=== PATIENT | male | born 1965 | race African-American/Black ===

== ENCOUNTER 2017-05-18 22:02 | Inpatient (IN) ==
[2017-05-18] MEDS ORDERED: KETOROLAC 30 MG/1 ML VIAL IV STA (23:25)
[2017-05-18] MEDS ORDERED: ONDANSETRON 4 MG/2 ML VIAL IV STA (23:25)
[2017-05-18] MEDS ORDERED: PANTOPRAZOLE 40 MG VIAL IV STA (23:25)
[2017-05-19] MEDS ORDERED: ONDANSETRON 4 MG/2 ML VIAL ONE ×2 (00:27→03:35)
[2017-05-19] MEDS ORDERED: KETOROLAC 30 MG/1 ML VIAL ONE (00:27)
[2017-05-19] MEDS ORDERED: PANTOPRAZOLE 40 MG VIAL IV ONE (00:27)
[2017-05-19 00:49] LABS: Basophils % 0.2 % (0.0-0.8); Hematocrit 43.1 VOL% (42.0-52.0); Hemoglobin 14.9 GM/DL (14.0-18.0); Immature Granulocytes % 0.4 %; Immature Granulocytes Absolute 0.06 #; Lymphocytes # 0.9 10*3/uL (1.4-4.0); Lymphocytes % 5.4 % (21.2-54.2); Mean Corpuscular HGB Conc 34.6 GM/DL (32-36); Mean Corpuscular Hemoglobin 33 PG (27-34); Mean Corpuscular Volume 93.9 FL (87-102); Mean Platelet Volume 9.5 FL (9.6-12.0); Monocytes # 0.5 10*3/uL (0.11-0.8); Neutrophils # 14.9 10*3/uL (1.4-7.4); Platelet Count 305 T/CUMM (130-400); Red Blood Count 4.59 MC/CUMM (3.8-5.5); Red Cell Distribution Width 12.1 % (9.3-17.3); White Blood Count 16.4 T/CUMM (4-12)
[2017-05-19 01:15] LABS: Alanine Aminotransferase 18 U/L (16-61); Albumin 3.6 G/DL (3.4-5.0); Alkaline Phosphatase 74 U/L (45-117); Aspartate Amino Transferase 11 U/L (0-37); Blood Urea Nitrogen 9 MG/DL (7-18); Glucose 148 MG/DL (74-106); Osmolality,Calculated 287.8 MOS/KG (273-304); Potassium 3.6 MMOL/L (3.5-5.1); Sodium 144 MMOL/L (136-145); Total Protein 6.7 G/DL (6.4-8.3); Troponin I Only < 0.015 NG/ML (0.00-0.045)
[2017-05-19 01:45] LABS: Band Neutrophils 5 % (0-10); Lymphocytes 3 % (20-55); Segmented Neutrophils 90 % (50-85); Total Cells Counted 100
[2017-05-19] MEDS ORDERED: MORPHINE 2 MG/1 ML SYRINGE IV PRN (02:56)
[2017-05-19] MEDS ORDERED: ONDANSETRON 4 MG/2 ML VIAL IV PRN (02:56)
[2017-05-19] MEDS ORDERED: MORPHINE 2 MG/1 ML SYRINGE IV STA (03:00)
[2017-05-19] MEDS ORDERED: ONDANSETRON 4 MG/2 ML VIAL IV STA ×2 (03:35→05:00)
[2017-05-19] MEDS ORDERED: MORPHINE 10 MG/1 ML VIAL ONE (03:36)
[2017-05-19] MEDS: DEXTROSE 5% LACTATED RINGERS 1,000 ML IV SCH ×3 (04:21→21:07)
[2017-05-19 08:02] LABS: Basophils % 0.2 % (0.0-0.8); Eosinophils # 0.1 10*3/uL (0.0-0.87); Hematocrit 37.8 VOL% (42.0-52.0); Hemoglobin 13.2 GM/DL (14.0-18.0); Immature Granulocytes % 0.4 %; Immature Granulocytes Absolute 0.05 #; Lymphocytes # 2.9 10*3/uL (1.4-4.0); Lymphocytes % 21.9 % (21.2-54.2); Mean Corpuscular HGB Conc 34.9 GM/DL (32-36); Mean Corpuscular Hemoglobin 33 PG (27-34); Mean Corpuscular Volume 94.5 FL (87-102); Mean Platelet Volume 9.7 FL (9.6-12.0); Monocytes % 7.2 % (1.7-12.7); Neutrophils # 9.1 10*3/uL (1.4-7.4); Neutrophils % 69.3 % (38.7-73.9); Platelet Count 281 T/CUMM (130-400); Red Cell Distribution Width 12.4 % (9.3-17.3); White Blood Count 13.2 T/CUMM (4-12)
[2017-05-19 08:30] LABS: Bilirubin,Total 0.8 MG/DL (0.2-1.0); Calcium 8.4 MG/DL (8.5-10.1); Potassium 3.7 MMOL/L (3.5-5.1); Total Protein 5.2 G/DL (6.4-8.3)
[2017-05-19] MEDS: PANTOPRAZOLE 40 MG TABLET PO SCH (09:50)
[2017-05-19] MEDS: KETOROLAC 30 MG/1 ML VIAL IV PRN ×2 (09:50→17:33)
[2017-05-20] MEDS: KETOROLAC 30 MG/1 ML VIAL IV PRN ×2 (02:00→08:42)
[2017-05-20] MEDS: DEXTROSE 5% LACTATED RINGERS 1,000 ML IV SCH ×3 (04:17→21:27)
[2017-05-20 05:35] LABS: Basophils % 0.3 % (0.0-0.8); Eosinophils # 0.2 10*3/uL (0.0-0.87); Eosinophils % 2.8 % (0.00-10.9); Hematocrit 36.6 VOL% (42.0-52.0); Hemoglobin 12.7 GM/DL (14.0-18.0); Immature Granulocytes % 0.3 %; Immature Granulocytes Absolute 0.02 #; Lymphocytes # 2.8 10*3/uL (1.4-4.0); Mean Corpuscular HGB Conc 34.7 GM/DL (32-36); Mean Corpuscular Hemoglobin 33 PG (27-34); Mean Corpuscular Volume 94.6 FL (87-102); Mean Platelet Volume 9.8 FL (9.6-12.0); Monocytes # 0.5 10*3/uL (0.11-0.8); Monocytes % 7.2 % (1.7-12.7); Neutrophils % 46.4 % (38.7-73.9); Platelet Count 256 T/CUMM (130-400); Red Blood Count 3.87 MC/CUMM (3.8-5.5); Red Cell Distribution Width 12.7 % (9.3-17.3); White Blood Count 6.5 T/CUMM (4-12)
[2017-05-20] MEDS: PANTOPRAZOLE 40 MG TABLET PO SCH (10:54)
[2017-05-20 15:51] LABS: Apearance,Urine CLEAR (Clear); Bilirubin,Urine Negative (Negative); Blood, Urine Negative (Negative); Glucose,Urine (UA) Negative (Negative); Ketones,Urine Negative (Negative); Nitrite,Urine Negative (Negative); Protein,Urine Negative; RBC,Urine 1 /HPF (0-4); Urine Color Yellow (Yellow); WBC,Urine <1 /HPF (0-6)
[2017-05-20] MEDS: MORPHINE 10 MG/1 ML VIAL IV PRN ×2 (18:45→23:37)
[2017-05-21] MEDS: ENOXAPARIN 40 MG/0.4 ML SYRINGE SUBCUT SCH ×2 (02:34→21:05)
[2017-05-21] MEDS: DEXTROSE 5% LACTATED RINGERS 1,000 ML IV SCH ×3 (05:05→23:59)
[2017-05-21] MEDS: MORPHINE 10 MG/1 ML VIAL IV PRN ×3 (05:19→21:03)
[2017-05-21 06:09] LABS: Basophils % 0.4 % (0.0-0.8); Eosinophils # 0.2 10*3/uL (0.0-0.87); Eosinophils % 2.6 % (0.00-10.9); Hemoglobin 12.3 GM/DL (14.0-18.0); Immature Granulocytes % 0.4 %; Immature Granulocytes Absolute 0.03 #; Lymphocytes # 2.6 10*3/uL (1.4-4.0); Lymphocytes % 31.7 % (21.2-54.2); Mean Corpuscular HGB Conc 34.2 GM/DL (32-36); Mean Corpuscular Hemoglobin 32 PG (27-34); Mean Corpuscular Volume 93.8 FL (87-102); Mean Platelet Volume 9.8 FL (9.6-12.0); Monocytes # 0.6 10*3/uL (0.11-0.8); Monocytes % 6.8 % (1.7-12.7); Neutrophils # 4.8 10*3/uL (1.4-7.4); Neutrophils % 58.1 % (38.7-73.9); Platelet Count 265 T/CUMM (130-400); Red Blood Count 3.84 MC/CUMM (3.8-5.5); Red Cell Distribution Width 12.2 % (9.3-17.3); White Blood Count 8.2 T/CUMM (4-12)
[2017-05-21 06:46] LABS: Albumin 2.5 G/DL (3.4-5.0); Bilirubin,Total 1.1 MG/DL (0.2-1.0); Calcium 7.8 MG/DL (8.5-10.1); Osmolality,Calculated 289.6 MOS/KG (273-304); Potassium 3.8 MMOL/L (3.5-5.1); Total Protein 4.8 G/DL (6.4-8.3)
[2017-05-21] MEDS ORDERED: cefOXitin 2,000 MG in SYRINGE 1 EACH IV ONE (07:55)
[2017-05-21] MEDS ORDERED: PIPERACILLIN/TAZOBACTAM 3,375 MG in SODIUM CHLORIDE 0.9% 100 ML IV SCH (08:30)
[2017-05-21] MEDS ORDERED: DIAZEPAM 5 MG TABLET PO ONE (09:04)
[2017-05-21] MEDS ORDERED: PANTOPRAZOLE 40 MG TABLET PO ONE (09:04)
[2017-05-21] MEDS: PANTOPRAZOLE 40 MG TABLET PO SCH (09:09)
[2017-05-21] MEDS ORDERED: LACTATED RINGERS 1,000 ML IV SCH (09:30)
[2017-05-21] MEDS ORDERED: TISSUE ADHESIVE 1 EACH APPLICATOR TOP ONE (11:49)
[2017-05-21] MEDS ORDERED: BUPIVACAINE 0.25% 50 ML VIAL ONE (11:49)
[2017-05-21] MEDS ORDERED: ACETAMINOPHEN 1,000 MG/100 ML VIAL IV ONE (13:56)
[2017-05-21] MEDS ORDERED: METOPROLOL TARTRATE 5 MG/5 ML VIAL IV ONE (14:04)
[2017-05-21] MEDS ORDERED: SEVOFLURANE 1 UNIT/15 MINUTE INH ONE (14:39)
[2017-05-21] MEDS ORDERED: PROPOFOL 200 MG/20 ML VIAL IV ONE (14:39)
[2017-05-21] MEDS ORDERED: MIDAZOLAM 2 MG/2 ML VIAL ONE (14:39)
[2017-05-21] MEDS ORDERED: fentaNYL 100 MCG/2 ML VIAL ONE (14:39)
[2017-05-21] MEDS ORDERED: GLYCOPYRROLATE 0.4 MG/2 ML VIAL ONE (14:40)
[2017-05-21] MEDS ORDERED: ROCURONIUM 100 MG/10 ML VIAL IV ONE (14:40)
[2017-05-21] MEDS ORDERED: NEOSTIGMINE 10 MG/10 ML VIAL ONE (14:40)
[2017-05-21] MEDS ORDERED: KETOROLAC 30 MG/1 ML VIAL ONE (14:40)
[2017-05-21] MEDS ORDERED: ONDANSETRON 4 MG/2 ML VIAL ONE (14:40)
[2017-05-22] MEDS: MORPHINE 10 MG/1 ML VIAL IV PRN ×2 (01:15→06:16)
[2017-05-22] MEDS: DEXTROSE 5% LACTATED RINGERS 1,000 ML IV SCH ×3 (02:52→20:23)
[2017-05-22] MEDS: KETOROLAC 30 MG/1 ML VIAL IV PRN (05:08)
[2017-05-22 07:48] LABS: Basophils % 0.1 % (0.0-0.8); Eosinophils # 0.1 10*3/uL (0.0-0.87); Eosinophils % 0.5 % (0.00-10.9); Hematocrit 35.6 VOL% (42.0-52.0); Hemoglobin 12.2 GM/DL (14.0-18.0); Immature Granulocytes % 0.4 %; Immature Granulocytes Absolute 0.04 #; Lymphocytes # 1.3 10*3/uL (1.4-4.0); Lymphocytes % 13.3 % (21.2-54.2); Mean Corpuscular HGB Conc 34.3 GM/DL (32-36); Mean Corpuscular Hemoglobin 32 PG (27-34); Mean Corpuscular Volume 94.7 FL (87-102); Mean Platelet Volume 9.6 FL (9.6-12.0); Monocytes # 0.7 10*3/uL (0.11-0.8); Monocytes % 7.3 % (1.7-12.7); Neutrophils # 7.7 10*3/uL (1.4-7.4); Neutrophils % 78.4 % (38.7-73.9); Platelet Count 257 T/CUMM (130-400); Red Blood Count 3.76 MC/CUMM (3.8-5.5); Red Cell Distribution Width 12.3 % (9.3-17.3); White Blood Count 9.8 T/CUMM (4-12)
[2017-05-22] MEDS ORDERED: PIPERACILLIN/TAZOBACTAM 3,375 MG in SODIUM CHLORIDE 0.9% 100 ML IV SCH (08:00)
[2017-05-22 08:32] LABS: Bilirubin,Direct 0.37 MG/DL (0.0-0.20); Bilirubin,Total 1.2 MG/DL (0.2-1.0); Calcium 8.1 MG/DL (8.5-10.1); Potassium 3.8 MMOL/L (3.5-5.1); Total Protein 5.9 G/DL (6.4-8.3)
[2017-05-22] MEDS: PANTOPRAZOLE 40 MG TABLET PO SCH (08:40)
[2017-05-22] MEDS: KETOROLAC 30 MG/1 ML VIAL IV SCH ×3 (08:41→19:24)
[2017-05-22] MEDS: LEVOFLOXACIN INJ 750 MG in PREMIX 1 EACH IV SCH (08:42)
[2017-05-22] MEDS: metroNIDAZOLE INJ 500 MG in PREMIX 1 EACH IV SCH ×2 (10:20→16:13)
[2017-05-22] MEDS: HYDROmorphone 2 MG/1 ML VIAL IV PRN ×4 (10:20→23:11)
[2017-05-22] MEDS: ENOXAPARIN 40 MG/0.4 ML SYRINGE SUBCUT SCH (20:24)
[2017-05-23] MEDS: metroNIDAZOLE INJ 500 MG in PREMIX 1 EACH IV SCH ×3 (00:20→16:32)
[2017-05-23] MEDS: HYDROmorphone 2 MG/1 ML VIAL IV PRN (01:20)
[2017-05-23] MEDS: KETOROLAC 30 MG/1 ML VIAL IV SCH ×4 (01:20→19:39)
[2017-05-23] MEDS: SIMETHICONE CHEW 80 MG TABLET PO PRN ×3 (01:42→20:55)
[2017-05-23] MEDS: MORPHINE 10 MG/1 ML VIAL IV PRN ×7 (03:09→22:39)
[2017-05-23 04:10] LABS: Basophils % 0.1 % (0.0-0.8); Eosinophils % 0.1 % (0.00-10.9); Hematocrit 25.3 VOL% (42.0-52.0); Hemoglobin 8.7 GM/DL (14.0-18.0); Immature Granulocytes % 0.3 %; Immature Granulocytes Absolute 0.04 #; Lymphocytes # 0.9 10*3/uL (1.4-4.0); Lymphocytes % 7.1 % (21.2-54.2); Mean Corpuscular HGB Conc 34.4 GM/DL (32-36); Mean Corpuscular Hemoglobin 33 PG (27-34); Mean Corpuscular Volume 95.1 FL (87-102); Neutrophils # 10.5 10*3/uL (1.4-7.4); Neutrophils % 84.4 % (38.7-73.9); Platelet Count 239 T/CUMM (130-400); Red Blood Count 2.66 MC/CUMM (3.8-5.5); Red Cell Distribution Width 11.9 % (9.3-17.3); White Blood Count 12.5 T/CUMM (4-12)
[2017-05-23 04:56] LABS: Bilirubin,Direct 0.33 MG/DL (0.0-0.20); Bilirubin,Total 1.8 MG/DL (0.2-1.0); Calcium 7.9 MG/DL (8.5-10.1); Osmolality,Calculated 273.7 MOS/KG (273-304); Potassium 3.5 MMOL/L (3.5-5.1); Total Protein 5.5 G/DL (6.4-8.3)
[2017-05-23] MEDS: DEXTROSE 5% LACTATED RINGERS 1,000 ML IV SCH ×2 (06:08→11:01)
[2017-05-23] MEDS: PANTOPRAZOLE 40 MG TABLET PO SCH (08:27)
[2017-05-23] MEDS ORDERED: BISACODYL 5 MG TABLET PO PRN (10:37)
[2017-05-23] MEDS: LEVOFLOXACIN INJ 750 MG in PREMIX 1 EACH IV SCH (10:56)
[2017-05-23 11:36] LABS: Basophils % 0.2 % (0.0-0.8); Eosinophils % 0.2 % (0.00-10.9); Hematocrit 23.2 VOL% (42.0-52.0); Immature Granulocytes % 0.3 %; Immature Granulocytes Absolute 0.04 #; Lymphocytes # 1.9 10*3/uL (1.4-4.0); Lymphocytes % 14.6 % (21.2-54.2); Mean Corpuscular HGB Conc 34.5 GM/DL (32-36); Mean Corpuscular Hemoglobin 33 PG (27-34); Mean Corpuscular Volume 94.3 FL (87-102); Mean Platelet Volume 9.6 FL (9.6-12.0); Monocytes # 1.2 10*3/uL (0.11-0.8); Monocytes % 9.7 % (1.7-12.7); Neutrophils # 9.6 10*3/uL (1.4-7.4); Platelet Count 232 T/CUMM (130-400); Red Blood Count 2.46 MC/CUMM (3.8-5.5); Red Cell Distribution Width 11.9 % (9.3-17.3); White Blood Count 12.8 T/CUMM (4-12)
[2017-05-23] MEDS ORDERED: BISACODYL 10 MG SUPP RECTAL PRN (13:04)
[2017-05-23] MEDS: ENOXAPARIN 40 MG/0.4 ML SYRINGE SUBCUT SCH (20:11)
[2017-05-24] MEDS: metroNIDAZOLE INJ 500 MG in PREMIX 1 EACH IV SCH ×3 (00:17→16:58)
[2017-05-24] MEDS: KETOROLAC 30 MG/1 ML VIAL IV SCH ×4 (01:35→19:50)
[2017-05-24] MEDS: MORPHINE 10 MG/1 ML VIAL IV PRN ×4 (01:35→22:41)
[2017-05-24] MEDS: DEXTROSE 5% LACTATED RINGERS 1,000 ML IV SCH ×3 (01:38→11:56)
[2017-05-24 08:55] LABS: Basophils % 0.1 % (0.0-0.8); Eosinophils # 0.2 10*3/uL (0.0-0.87); Immature Granulocytes % 0.4 %; Immature Granulocytes Absolute 0.03 #; Lymphocytes # 1.4 10*3/uL (1.4-4.0); Lymphocytes % 16.8 % (21.2-54.2); Mean Corpuscular Hemoglobin 33 PG (27-34); Mean Corpuscular Volume 94.2 FL (87-102); Mean Platelet Volume 9.1 FL (9.6-12.0); Monocytes # 1.1 10*3/uL (0.11-0.8); Monocytes % 12.6 % (1.7-12.7); Neutrophils # 5.8 10*3/uL (1.4-7.4); Neutrophils % 68.1 % (38.7-73.9); Platelet Count 189 T/CUMM (130-400); Red Blood Count 1.91 MC/CUMM (3.8-5.5); Red Cell Distribution Width 12.4 % (9.3-17.3); White Blood Count 8.5 T/CUMM (4-12)
[2017-05-24] MEDS: PANTOPRAZOLE 40 MG TABLET PO SCH (09:13)
[2017-05-24 09:36] LABS: Hemoglobin 6.3 GM/DL (14.0-18.0)
[2017-05-24] MEDS ORDERED: SODIUM CHLORIDE 0.9% 1,000 ML IV PRN (09:49)
[2017-05-24] MEDS: LEVOFLOXACIN INJ 750 MG in PREMIX 1 EACH IV SCH (10:28)
[2017-05-24] MEDS ORDERED: ceFAZolin 1,000 MG VIAL ONE (11:57)
[2017-05-24] MEDS ORDERED: BUPIVACAINE 0.25% 50 ML VIAL ONE (12:39)
[2017-05-24] MEDS ORDERED: BUPIVACAINE LIPOSOMAL 20 ML/266 MG VIAL ONE (12:40)
[2017-05-24] MEDS: HYDROmorphone 2 MG/1 ML VIAL IV PRN ×4 (12:57→13:15)
[2017-05-24] MEDS ORDERED: HYDROmorphone 2 MG/1 ML VIAL ONE ×2 (12:59→13:10)
[2017-05-24] MEDS ORDERED: PROPOFOL 200 MG/20 ML VIAL IV ONE (13:09)
[2017-05-24] MEDS ORDERED: SEVOFLURANE 1 UNIT/15 MINUTE INH ONE (13:09)
[2017-05-24] MEDS ORDERED: fentaNYL 100 MCG/2 ML VIAL ONE (13:10)
[2017-05-24] MEDS ORDERED: SUCCINYLCHOLINE 200 MG/10 ML VIAL ONE (13:10)
[2017-05-24] MEDS ORDERED: ACETAMINOPHEN 1,000 MG/100 ML VIAL IV ONE (13:10)
[2017-05-24] MEDS ORDERED: DEXAMETHASONE 10 MG/1 ML VIAL ONE (13:10)
[2017-05-24] MEDS ORDERED: ROCURONIUM 100 MG/10 ML VIAL IV ONE (13:10)
[2017-05-24] MEDS ORDERED: NEOSTIGMINE 10 MG/10 ML VIAL ONE (13:10)
[2017-05-24] MEDS ORDERED: ONDANSETRON 4 MG/2 ML VIAL ONE (13:10)
[2017-05-24] MEDS ORDERED: GLYCOPYRROLATE 0.4 MG/2 ML VIAL ONE (13:10)
[2017-05-24] MEDS ORDERED: SODIUM CHLORIDE 0.9% 1,000 ML IV ONE (13:10)
[2017-05-24 13:11] LABS: Apearance,Urine CLEAR (Clear); Bacteria,Urine Occasional /HPF (Few); Bilirubin,Urine Negative (Negative); Blood, Urine Small mg/dL (Negative); Glucose,Urine (UA) Negative (Negative); Ketones,Urine Negative (Negative); Mucus,Urine Occasional /LPF (Occasional); Nitrite,Urine Negative (Negative); Protein,Urine Negative; Squamous Epithelial Cell,Urine Occasional /HPF (0-10); Urine Color Yellow (Yellow); Urine Specific Gravity 1.004 (1.001-1.035); Urine Urobilinogen < 2.0 EU/DL (0.2-1.0); WBC,Urine <1 /HPF (0-6)
[2017-05-24] MEDS ORDERED: ONDANSETRON 4 MG/2 ML VIAL IV PRN (13:17)
[2017-05-24] MEDS ORDERED: SODIUM CHLORIDE 0.9% 1,000 ML IV SCH (13:30)
[2017-05-24 13:42] LABS: Basophils % 0.1 % (0.0-0.8); Eosinophils # 0.1 10*3/uL (0.0-0.87); Eosinophils % 0.9 % (0.00-10.9); Hematocrit 25.4 VOL% (42.0-52.0); Hemoglobin 8.8 GM/DL (14.0-18.0); Immature Granulocytes % 0.5 %; Immature Granulocytes Absolute 0.05 #; Lymphocytes # 0.9 10*3/uL (1.4-4.0); Lymphocytes % 8.8 % (21.2-54.2); Mean Corpuscular HGB Conc 34.6 GM/DL (32-36); Mean Corpuscular Hemoglobin 33 PG (27-34); Mean Corpuscular Volume 93.7 FL (87-102); Mean Platelet Volume 9.1 FL (9.6-12.0); Monocytes # 0.5 10*3/uL (0.11-0.8); Monocytes % 4.4 % (1.7-12.7); Neutrophils % 85.3 % (38.7-73.9); Platelet Count 198 T/CUMM (130-400); Red Blood Count 2.71 MC/CUMM (3.8-5.5); Red Cell Distribution Width 13.4 % (9.3-17.3); White Blood Count 10.5 T/CUMM (4-12)
[2017-05-24] MEDS: ENOXAPARIN 40 MG/0.4 ML SYRINGE SUBCUT SCH (20:34)
[2017-05-25] MEDS: DEXTROSE 5% LACTATED RINGERS 1,000 ML IV SCH ×3 (00:41→21:46)
[2017-05-25] MEDS: metroNIDAZOLE INJ 500 MG in PREMIX 1 EACH IV SCH ×4 (00:42→23:58)
[2017-05-25] MEDS: KETOROLAC 30 MG/1 ML VIAL IV SCH ×4 (02:40→20:30)
[2017-05-25] MEDS: MORPHINE 10 MG/1 ML VIAL IV PRN ×2 (02:40→05:53)
[2017-05-25 05:25] LABS: Basophils % 0.1 % (0.0-0.8); Hematocrit 21.7 VOL% (42.0-52.0); Hemoglobin 7.6 GM/DL (14.0-18.0); Immature Granulocytes % 0.5 %; Immature Granulocytes Absolute 0.05 #; Lymphocytes # 1.1 10*3/uL (1.4-4.0); Lymphocytes % 12.4 % (21.2-54.2); Mean Corpuscular Hemoglobin 32 PG (27-34); Mean Corpuscular Volume 91.6 FL (87-102); Mean Platelet Volume 9.7 FL (9.6-12.0); Monocytes # 0.9 10*3/uL (0.11-0.8); Monocytes % 9.6 % (1.7-12.7); Neutrophils % 77.4 % (38.7-73.9); Platelet Count 208 T/CUMM (130-400); Red Blood Count 2.37 MC/CUMM (3.8-5.5); Red Cell Distribution Width 14.1 % (9.3-17.3); White Blood Count 9.1 T/CUMM (4-12)
[2017-05-25] MEDS ORDERED: NALOXONE 0.4 MG/ML VIAL IV PRN (07:25)
[2017-05-25] MEDS: PANTOPRAZOLE 40 MG TABLET PO SCH (08:50)
[2017-05-25] MEDS: HYDROmorphone PCA 30 MG/30 ML SYRINGE IV SCH (09:30)
[2017-05-25] MEDS: LEVOFLOXACIN INJ 750 MG in PREMIX 1 EACH IV SCH (10:04)
[2017-05-25 11:53] LABS: Hematocrit 22.5 VOL% (42.0-52.0)
[2017-05-25] MEDS: ENOXAPARIN 40 MG/0.4 ML SYRINGE SUBCUT SCH (20:33)
[2017-05-26] MEDS: KETOROLAC 30 MG/1 ML VIAL IV SCH ×4 (02:21→20:02)
[2017-05-26] MEDS: DEXTROSE 5% LACTATED RINGERS 1,000 ML IV SCH ×2 (02:32→06:17)
[2017-05-26 05:51] LABS: Basophils % 0.2 % (0.0-0.8); Eosinophils # 0.2 10*3/uL (0.0-0.87); Hematocrit 22.3 VOL% (42.0-52.0); Hemoglobin 7.6 GM/DL (14.0-18.0); Immature Granulocytes % 0.7 %; Immature Granulocytes Absolute 0.07 #; Lymphocytes % 30.6 % (21.2-54.2); Mean Corpuscular HGB Conc 34.1 GM/DL (32-36); Mean Corpuscular Hemoglobin 32 PG (27-34); Mean Corpuscular Volume 94.9 FL (87-102); Mean Platelet Volume 9.2 FL (9.6-12.0); Monocytes # 1.1 10*3/uL (0.11-0.8); Monocytes % 10.8 % (1.7-12.7); Neutrophils # 5.5 10*3/uL (1.4-7.4); Neutrophils % 55.7 % (38.7-73.9); Platelet Count 241 T/CUMM (130-400); Red Blood Count 2.35 MC/CUMM (3.8-5.5); Red Cell Distribution Width 13.6 % (9.3-17.3); White Blood Count 9.8 T/CUMM (4-12)
[2017-05-26 06:13] LABS: Potassium 3.5 MMOL/L (3.5-5.1)
[2017-05-26] MEDS: metroNIDAZOLE INJ 500 MG in PREMIX 1 EACH IV SCH (09:00)
[2017-05-26] MEDS: PANTOPRAZOLE 40 MG TABLET PO SCH (09:01)
[2017-05-26] MEDS ORDERED: FUROSEMIDE 40 MG/4 ML VIAL IV ONE (09:22)
[2017-05-26] MEDS ORDERED: HYDROmorphone 2 MG/1 ML VIAL IV PRN (09:22)
[2017-05-26] MEDS: LEVOFLOXACIN INJ 750 MG in PREMIX 1 EACH IV SCH (09:25)
[2017-05-26] MEDS: ENOXAPARIN 40 MG/0.4 ML SYRINGE SUBCUT SCH (21:59)
[2017-05-27] MEDS: HYDROmorphone PCA 30 MG/30 ML SYRINGE IV SCH (01:43)
[2017-05-27] MEDS: KETOROLAC 30 MG/1 ML VIAL IV SCH (02:28)
[2017-05-27 04:53] LABS: Basophils % 0.3 % (0.0-0.8); Eosinophils # 0.3 10*3/uL (0.0-0.87); Eosinophils % 3.3 % (0.00-10.9); Hematocrit 23.4 VOL% (42.0-52.0); Hemoglobin 8.1 GM/DL (14.0-18.0); Immature Granulocytes % 0.5 %; Immature Granulocytes Absolute 0.05 #; Lymphocytes # 2.5 10*3/uL (1.4-4.0); Lymphocytes % 26.4 % (21.2-54.2); Mean Corpuscular HGB Conc 34.6 GM/DL (32-36); Mean Corpuscular Hemoglobin 33 PG (27-34); Mean Corpuscular Volume 94.7 FL (87-102); Mean Platelet Volume 8.7 FL (9.6-12.0); Monocytes % 10.2 % (1.7-12.7); Neutrophils # 5.6 10*3/uL (1.4-7.4); Neutrophils % 59.3 % (38.7-73.9); Platelet Count 268 T/CUMM (130-400); Red Blood Count 2.47 MC/CUMM (3.8-5.5); Red Cell Distribution Width 13.5 % (9.3-17.3); White Blood Count 9.4 T/CUMM (4-12)
[2017-05-27] MEDS: LISINOPRIL 10 MG TABLET PO SCH (08:14)
[2017-05-27] MEDS: PANTOPRAZOLE 40 MG TABLET PO SCH (08:14)
[2017-05-27] MEDS: POLYETHYLENE GLYCOL POWDER 17 GM PACK PO SCH (09:59)
[2017-05-27] MEDS: ENOXAPARIN 40 MG/0.4 ML SYRINGE SUBCUT SCH (21:44)
[2017-05-28 06:09] LABS: Basophils % 0.2 % (0.0-0.8); Eosinophils # 0.3 10*3/uL (0.0-0.87); Eosinophils % 3.2 % (0.00-10.9); Hematocrit 25.9 VOL% (42.0-52.0); Hemoglobin 8.9 GM/DL (14.0-18.0); Immature Granulocytes % 0.7 %; Immature Granulocytes Absolute 0.07 #; Lymphocytes # 2.9 10*3/uL (1.4-4.0); Lymphocytes % 28.6 % (21.2-54.2); Mean Corpuscular HGB Conc 34.4 GM/DL (32-36); Mean Corpuscular Hemoglobin 32 PG (27-34); Mean Corpuscular Volume 93.8 FL (87-102); Monocytes # 1.2 10*3/uL (0.11-0.8); Monocytes % 11.4 % (1.7-12.7); NRBC # 0.02 10*3/uL; Neutrophils # 5.6 10*3/uL (1.4-7.4); Neutrophils % 55.9 % (38.7-73.9); Platelet Count 325 T/CUMM (130-400); Red Blood Count 2.76 MC/CUMM (3.8-5.5); Red Cell Distribution Width 14.2 % (9.3-17.3); White Blood Count 10.1 T/CUMM (4-12)
[2017-05-28 06:46] LABS: Calcium 7.9 MG/DL (8.5-10.1); Potassium 3.9 MMOL/L (3.5-5.1)
[2017-05-28] MEDS: LISINOPRIL 10 MG TABLET PO SCH (08:32)
[2017-05-28] MEDS: PANTOPRAZOLE 40 MG TABLET PO SCH (08:32)
[2017-05-28] MEDS: POLYETHYLENE GLYCOL POWDER 17 GM PACK PO SCH (08:32)
[2017-05-28] MEDS ORDERED: METOPROLOL TARTRATE 50 MG TABLET PO SCH (09:00)
[2017-05-28 17:47] VITALS: BP 164/85
== END 2017-05-28 20:07 | disposition home or self-care (01) | DRG 336 ==
LOC: N.ED 22:02 → N.EDINP 05-19 02:56 → N.3E 05-19 03:50
PROVIDERS: ADMIT Surgery; ATTEND Surgery

== ENCOUNTER 2017-06-05 11:49 | Inpatient (IN) ==
[2017-06-05] MEDS ORDERED: AMPICILLIN/SULBACTAM 3,000 MG in SODIUM CHLORIDE 0.9% 100 ML IV STA (12:30)
[2017-06-05] MEDS ORDERED: ONDANSETRON 4 MG/2 ML VIAL IV STA (12:30)
[2017-06-05] MEDS ORDERED: HYDROmorphone 2 MG/1 ML VIAL IV STA (12:30)
[2017-06-05] MEDS ORDERED: ONDANSETRON 4 MG/2 ML VIAL ONE (12:49)
[2017-06-05] MEDS ORDERED: HYDROmorphone 2 MG/1 ML VIAL ONE (12:50)
[2017-06-05] MEDS ORDERED: AMPICILLIN/SULBACTAM 3,000 MG VIAL ONE (12:50)
[2017-06-05 13:02] LABS: Basophils % 0.4 % (0.0-0.8); Eosinophils # 0.1 10*3/uL (0.0-0.87); Eosinophils % 1.2 % (0.00-10.9); Hematocrit 33.2 VOL% (42.0-52.0); Hemoglobin 10.9 GM/DL (14.0-18.0); Immature Granulocytes % 0.3 %; Immature Granulocytes Absolute 0.03 #; Lymphocytes # 1.8 10*3/uL (1.4-4.0); Lymphocytes % 18.3 % (21.2-54.2); Mean Corpuscular HGB Conc 32.8 GM/DL (32-36); Mean Corpuscular Hemoglobin 32 PG (27-34); Mean Corpuscular Volume 96.2 FL (87-102); Mean Platelet Volume 8.2 FL (9.6-12.0); Monocytes # 0.6 10*3/uL (0.11-0.8); Monocytes % 6.2 % (1.7-12.7); Neutrophils # 7.2 10*3/uL (1.4-7.4); Neutrophils % 73.6 % (38.7-73.9); Platelet Count 563 T/CUMM (130-400); Red Blood Count 3.45 MC/CUMM (3.8-5.5); Red Cell Distribution Width 14.7 % (9.3-17.3); White Blood Count 9.8 T/CUMM (4-12)
[2017-06-05 13:23] LABS: Apearance,Urine CLEAR (Clear); Bilirubin,Urine Negative (Negative); Blood, Urine Negative (Negative); Glucose,Urine (UA) Negative (Negative); Ketones,Urine Negative (Negative); Nitrite,Urine Negative (Negative); Protein,Urine Negative; RBC,Urine <1 /HPF (0-4); Urine Color Yellow (Yellow); Urine Specific Gravity 1.056 (1.001-1.035)
[2017-06-05 13:23] LABS: Albumin 3.7 G/DL (3.4-5.0); Calcium 8.8 MG/DL (8.5-10.1); Osmolality,Calculated 278.3 MOS/KG (273-304); Total Protein 6.8 G/DL (6.4-8.3)
[2017-06-05 13:25] LABS: Lactic Acid 0.8 MMOL/L (0.4-2.0)
[2017-06-05] MEDS ORDERED: ACETAMINOPHEN 325 MG TABLET PO PRN (15:09)
[2017-06-05] MEDS: DEXTROSE 5% NACL 0.45% 1,000 ML IV SCH (17:22)
[2017-06-05] MEDS: metroNIDAZOLE INJ 500 MG in PREMIX 1 EACH IV SCH ×2 (17:22→23:07)
[2017-06-05] MEDS ORDERED: INFLUENZA VIRUS VACCINE 0.5 ML SYRINGE IM ONE (17:59)
[2017-06-05] MEDS: ENOXAPARIN 40 MG/0.4 ML SYRINGE SUBCUT SCH (19:12)
[2017-06-05] MEDS: PIPERACILLIN/TAZOBACTAM 3,375 MG in SODIUM CHLORIDE 0.9% 100 ML IV SCH (19:13)
[2017-06-05] MEDS: ALBUTEROL/IPRATROPIUM 3 ML NEB RESP TX SCH ×2 (19:51→23:23)
[2017-06-05] MEDS: METOPROLOL TARTRATE 50 MG TABLET PO SCH (21:53)
[2017-06-06] MEDS: ALBUTEROL/IPRATROPIUM 3 ML NEB RESP TX SCH ×5 (02:52→20:20)
[2017-06-06] MEDS: PIPERACILLIN/TAZOBACTAM 3,375 MG in SODIUM CHLORIDE 0.9% 100 ML IV SCH ×3 (03:19→21:19)
[2017-06-06] MEDS: DEXTROSE 5% NACL 0.45% 1,000 ML IV SCH ×3 (03:31→17:59)
[2017-06-06 06:24] LABS: Basophils # 0.1 10*3/uL (0.0-0.2); Basophils % 0.7 % (0.0-0.8); Eosinophils # 0.3 10*3/uL (0.0-0.87); Eosinophils % 3.7 % (0.00-10.9); Hematocrit 30.1 VOL% (42.0-52.0); Hemoglobin 10.1 GM/DL (14.0-18.0); Immature Granulocytes % 0.4 %; Immature Granulocytes Absolute 0.03 #; Lymphocytes # 2.2 10*3/uL (1.4-4.0); Lymphocytes % 28.9 % (21.2-54.2); Mean Corpuscular HGB Conc 33.6 GM/DL (32-36); Mean Corpuscular Hemoglobin 32 PG (27-34); Mean Corpuscular Volume 94.7 FL (87-102); Mean Platelet Volume 8.7 FL (9.6-12.0); Monocytes # 0.7 10*3/uL (0.11-0.8); Monocytes % 8.9 % (1.7-12.7); Neutrophils # 4.3 10*3/uL (1.4-7.4); Neutrophils % 57.4 % (38.7-73.9); Platelet Count 530 T/CUMM (130-400); Red Blood Count 3.18 MC/CUMM (3.8-5.5); Red Cell Distribution Width 14.5 % (9.3-17.3); White Blood Count 7.5 T/CUMM (4-12)
[2017-06-06 06:47] LABS: Calcium 8.2 MG/DL (8.5-10.1); Osmolality,Calculated 279.3 MOS/KG (273-304); Potassium 4.1 MMOL/L (3.5-5.1)
[2017-06-06 06:53] LABS: Calcium 8.2 MG/DL (8.5-10.1); Osmolality,Calculated 279.3 MOS/KG (273-304); Potassium 4.1 MMOL/L (3.5-5.1)
[2017-06-06] MEDS: metroNIDAZOLE INJ 500 MG in PREMIX 1 EACH IV SCH ×2 (10:18→18:06)
[2017-06-06] MEDS: PANTOPRAZOLE 40 MG TABLET PO SCH (10:18)
[2017-06-06] MEDS: METOPROLOL TARTRATE 50 MG TABLET PO SCH ×2 (10:19→21:19)
[2017-06-06] MEDS: LISINOPRIL 10 MG TABLET PO SCH (10:19)
[2017-06-06] MEDS: MORPHINE 2 MG/1 ML SYRINGE IV PRN ×2 (16:55→21:18)
[2017-06-06] MEDS: ENOXAPARIN 40 MG/0.4 ML SYRINGE SUBCUT SCH (18:06)
[2017-06-07] MEDS: ALBUTEROL/IPRATROPIUM 3 ML NEB RESP TX SCH ×6 (00:13→19:56)
[2017-06-07] MEDS: metroNIDAZOLE INJ 500 MG in PREMIX 1 EACH IV SCH (02:00)
[2017-06-07] MEDS: MORPHINE 2 MG/1 ML SYRINGE IV PRN ×4 (02:47→21:15)
[2017-06-07] MEDS: CIPROFLOXACIN INJ 400 MG in PREMIX 1 EACH IV SCH ×2 (02:54→14:45)
[2017-06-07] MEDS: DEXTROSE 5% NACL 0.45% 1,000 ML IV SCH ×4 (04:09→22:33)
[2017-06-07] MEDS: METOPROLOL TARTRATE 50 MG TABLET PO SCH ×2 (08:27→21:16)
[2017-06-07] MEDS: LISINOPRIL 10 MG TABLET PO SCH (08:27)
[2017-06-07] MEDS: PANTOPRAZOLE 40 MG TABLET PO SCH (08:27)
[2017-06-07] MEDS: ENOXAPARIN 40 MG/0.4 ML SYRINGE SUBCUT SCH (17:38)
[2017-06-08] MEDS: ALBUTEROL/IPRATROPIUM 3 ML NEB RESP TX SCH ×6 (00:22→19:29)
[2017-06-08] MEDS: CIPROFLOXACIN INJ 400 MG in PREMIX 1 EACH IV SCH ×2 (02:12→14:45)
[2017-06-08] MEDS: MORPHINE 2 MG/1 ML SYRINGE IV PRN ×4 (04:39→21:57)
[2017-06-08 05:26] LABS: Basophils % 0.3 % (0.0-0.8); Eosinophils # 0.1 10*3/uL (0.0-0.87); Eosinophils % 1.4 % (0.00-10.9); Hematocrit 33.1 VOL% (42.0-52.0); Immature Granulocytes % 0.3 %; Immature Granulocytes Absolute 0.03 #; Lymphocytes # 1.3 10*3/uL (1.4-4.0); Lymphocytes % 14.4 % (21.2-54.2); Mean Corpuscular HGB Conc 33.2 GM/DL (32-36); Mean Corpuscular Hemoglobin 31 PG (27-34); Mean Corpuscular Volume 94.6 FL (87-102); Mean Platelet Volume 8.6 FL (9.6-12.0); Monocytes # 0.6 10*3/uL (0.11-0.8); Monocytes % 6.6 % (1.7-12.7); Neutrophils # 6.7 10*3/uL (1.4-7.4); Platelet Count 517 T/CUMM (130-400); Red Cell Distribution Width 14.2 % (9.3-17.3); White Blood Count 8.7 T/CUMM (4-12)
[2017-06-08] MEDS: METOPROLOL TARTRATE 50 MG TABLET PO SCH ×2 (08:30→20:45)
[2017-06-08] MEDS: PANTOPRAZOLE 40 MG TABLET PO SCH (08:30)
[2017-06-08] MEDS: LISINOPRIL 10 MG TABLET PO SCH (08:30)
[2017-06-08] MEDS ORDERED: BISACODYL 10 MG SUPP RECTAL ONE (12:46)
[2017-06-08] MEDS: DEXTROSE 5% NACL 0.45% 1,000 ML IV SCH ×2 (12:52→22:10)
[2017-06-08] MEDS: BISACODYL 5 MG TABLET PO SCH (14:44)
[2017-06-08] MEDS ORDERED: MAGNESIUM CITRATE 300 ML BOTTLE PO ONE (16:59)
[2017-06-08] MEDS: ONDANSETRON 4 MG/2 ML VIAL IV PRN (17:35)
[2017-06-08] MEDS: ENOXAPARIN 40 MG/0.4 ML SYRINGE SUBCUT SCH (17:36)
[2017-06-09] MEDS: ALBUTEROL/IPRATROPIUM 3 ML NEB RESP TX SCH ×7 (00:14→23:50)
[2017-06-09] MEDS ORDERED: HYDROmorphone 2 MG/1 ML VIAL IV ONE (02:36)
[2017-06-09] MEDS: CIPROFLOXACIN INJ 400 MG in PREMIX 1 EACH IV SCH ×2 (02:49→14:43)
[2017-06-09] MEDS: MORPHINE 2 MG/1 ML SYRINGE IV PRN ×2 (07:21→12:22)
[2017-06-09] MEDS: ONDANSETRON 4 MG/2 ML VIAL IV PRN ×2 (07:25→12:54)
[2017-06-09 08:11] LABS: Basophils % 0.2 % (0.0-0.8); Eosinophils # 0.1 10*3/uL (0.0-0.87); Eosinophils % 0.5 % (0.00-10.9); Hematocrit 36.7 VOL% (42.0-52.0); Hemoglobin 12.4 GM/DL (14.0-18.0); Immature Granulocytes % 0.2 %; Immature Granulocytes Absolute 0.02 #; Lymphocytes # 1.8 10*3/uL (1.4-4.0); Lymphocytes % 18.1 % (21.2-54.2); Mean Corpuscular HGB Conc 33.8 GM/DL (32-36); Mean Corpuscular Hemoglobin 32 PG (27-34); Mean Corpuscular Volume 94.8 FL (87-102); Mean Platelet Volume 8.5 FL (9.6-12.0); Monocytes # 0.8 10*3/uL (0.11-0.8); Neutrophils # 7.1 10*3/uL (1.4-7.4); Platelet Count 540 T/CUMM (130-400); Red Blood Count 3.87 MC/CUMM (3.8-5.5); Red Cell Distribution Width 14.2 % (9.3-17.3); White Blood Count 9.7 T/CUMM (4-12)
[2017-06-09] MEDS: METOPROLOL TARTRATE 50 MG TABLET PO SCH ×2 (08:23→22:05)
[2017-06-09] MEDS: BISACODYL 5 MG TABLET PO SCH (08:23)
[2017-06-09] MEDS: LISINOPRIL 10 MG TABLET PO SCH (08:23)
[2017-06-09] MEDS: PANTOPRAZOLE 40 MG TABLET PO SCH (08:24)
[2017-06-09 08:29] LABS: Albumin 3.9 G/DL (3.4-5.0); Calcium 9.2 MG/DL (8.5-10.1); Osmolality,Calculated 271.8 MOS/KG (273-304); Potassium 3.8 MMOL/L (3.5-5.1); Total Protein 6.9 G/DL (6.4-8.3)
[2017-06-09] MEDS: DEXTROSE 5% NACL 0.45% 1,000 ML IV SCH ×3 (08:33→23:26)
[2017-06-09] MEDS ORDERED: GLUCAGON 1 MG VIAL IM PRN (09:46)
[2017-06-09] MEDS ORDERED: DEXTROSE 50% 25 GM/50 ML VIAL IV PRN (09:46)
[2017-06-09] MEDS: INSULIN REGULAR 100 UNIT/ML SUBCUT SCH ×2 (12:53→18:41)
[2017-06-09] MEDS ORDERED: NALOXONE 0.4 MG/ML VIAL IV PRN (14:18)
[2017-06-09] MEDS ORDERED: ALUMINUM/MAGNES/SIMETH MAX STR 30 ML UDCUP PO PRN (14:19)
[2017-06-09] MEDS: MORPHINE PCA 30 MG/30 ML SYRINGE IV SCH (14:41)
[2017-06-09] MEDS ORDERED: DEXTROSE 10% 1,000 ML IV PRN (17:00)
[2017-06-09] MEDS: metroNIDAZOLE INJ 500 MG in PREMIX 1 EACH IV SCH ×2 (17:00→22:07)
[2017-06-09] MEDS ORDERED: TRACE ELEMENTS (5) 1 ML, MULTIVITAMIN INJ 10 ML in AMINO ACIDS/DEXT/LYTES 5-15% 2,000 ML IV SCH (17:00)
[2017-06-09] MEDS: FAT EMULSION 20% 250 ML IV SCH (18:25)
[2017-06-09] MEDS: ENOXAPARIN 40 MG/0.4 ML SYRINGE SUBCUT SCH (18:26)
[2017-06-10] MEDS: INSULIN REGULAR 100 UNIT/ML SUBCUT SCH ×4 (00:23→19:21)
[2017-06-10] MEDS: CIPROFLOXACIN INJ 400 MG in PREMIX 1 EACH IV SCH ×2 (02:48→14:59)
[2017-06-10] MEDS: ALBUTEROL/IPRATROPIUM 3 ML NEB RESP TX SCH ×6 (03:00→23:42)
[2017-06-10] MEDS: ALUMINUM/MAGNES/SIMETH MAX STR 30 ML UDCUP PO SCH ×3 (06:48→19:22)
[2017-06-10] MEDS: metroNIDAZOLE INJ 500 MG in PREMIX 1 EACH IV SCH ×3 (06:48→22:25)
[2017-06-10 06:54] LABS: Basophils % 0.5 % (0.0-0.8); Eosinophils # 0.2 10*3/uL (0.0-0.87); Eosinophils % 2.9 % (0.00-10.9); Hemoglobin 11.3 GM/DL (14.0-18.0); Immature Granulocytes % 0.5 %; Immature Granulocytes Absolute 0.03 #; Lymphocytes # 1.7 10*3/uL (1.4-4.0); Lymphocytes % 27.1 % (21.2-54.2); Mean Corpuscular HGB Conc 33.2 GM/DL (32-36); Mean Corpuscular Hemoglobin 32 PG (27-34); Mean Corpuscular Volume 96.6 FL (87-102); Mean Platelet Volume 8.7 FL (9.6-12.0); Monocytes # 0.8 10*3/uL (0.11-0.8); Neutrophils # 3.6 10*3/uL (1.4-7.4); Platelet Count 456 T/CUMM (130-400); Red Blood Count 3.52 MC/CUMM (3.8-5.5); Red Cell Distribution Width 14.3 % (9.3-17.3); White Blood Count 6.2 T/CUMM (4-12)
[2017-06-10 06:59] LABS: Calcium 8.6 MG/DL (8.5-10.1); Osmolality,Calculated 277.4 MOS/KG (273-304)
[2017-06-10] MEDS: BISACODYL 5 MG TABLET PO SCH (08:24)
[2017-06-10] MEDS: LISINOPRIL 10 MG TABLET PO SCH (08:24)
[2017-06-10] MEDS: PANTOPRAZOLE 40 MG TABLET PO SCH (08:24)
[2017-06-10] MEDS: METOPROLOL TARTRATE 50 MG TABLET PO SCH ×2 (08:24→22:08)
[2017-06-10] MEDS: DEXTROSE 5% NACL 0.45% 1,000 ML IV SCH ×3 (11:43→22:13)
[2017-06-10] MEDS: FAT EMULSION 20% 250 ML IV SCH (15:15)
[2017-06-10] MEDS: TRACE ELEMENTS (5) 1 ML, MULTIVITAMIN INJ 10 ML in AMINO ACIDS/DEXT/LYTES 5-15% 2,000 ML IV SCH (17:24)
[2017-06-10] MEDS: ENOXAPARIN 40 MG/0.4 ML SYRINGE SUBCUT SCH (19:22)
[2017-06-10] MEDS: MORPHINE PCA 30 MG/30 ML SYRINGE IV SCH (22:08)
[2017-06-11] MEDS: ALUMINUM/MAGNES/SIMETH MAX STR 30 ML UDCUP PO SCH ×2 (00:56→06:52)
[2017-06-11] MEDS: INSULIN REGULAR 100 UNIT/ML SUBCUT SCH ×5 (00:56→23:57)
[2017-06-11] MEDS: CIPROFLOXACIN INJ 400 MG in PREMIX 1 EACH IV SCH ×2 (01:20→15:19)
[2017-06-11] MEDS: ALBUTEROL/IPRATROPIUM 3 ML NEB RESP TX SCH ×4 (04:48→20:52)
[2017-06-11] MEDS: metroNIDAZOLE INJ 500 MG in PREMIX 1 EACH IV SCH ×3 (05:54→23:20)
[2017-06-11 08:10] LABS: Calcium 8.8 MG/DL (8.5-10.1); Osmolality,Calculated 279.4 MOS/KG (273-304); Potassium 4.3 MMOL/L (3.5-5.1)
[2017-06-11] MEDS ORDERED: MAGNESIUM HYDROXIDE SUSP 30 ML UDCUP PO PRN (09:19)
[2017-06-11] MEDS ORDERED: ALUMINUM/MAGNES/SIMETH MAX STR 30 ML UDCUP PO PRN (09:20)
[2017-06-11] MEDS: BISACODYL 5 MG TABLET PO SCH (11:18)
[2017-06-11] MEDS: METOPROLOL TARTRATE 50 MG TABLET PO SCH ×2 (11:21→20:44)
[2017-06-11] MEDS: LISINOPRIL 10 MG TABLET PO SCH (11:21)
[2017-06-11] MEDS: PANTOPRAZOLE 40 MG TABLET PO SCH (11:21)
[2017-06-11] MEDS: DEXTROSE 5% NACL 0.45% 1,000 ML IV SCH ×2 (12:53→22:15)
[2017-06-11] MEDS: FAT EMULSION 20% 250 ML IV SCH (15:19)
[2017-06-11] MEDS: ENOXAPARIN 40 MG/0.4 ML SYRINGE SUBCUT SCH (18:16)
[2017-06-11] MEDS: TRACE ELEMENTS (5) 1 ML, MULTIVITAMIN INJ 10 ML in AMINO ACIDS/DEXT/LYTES 5-15% 2,000 ML IV SCH (18:16)
[2017-06-11] MEDS: MORPHINE PCA 30 MG/30 ML SYRINGE IV SCH ×2 (22:15→23:20)
[2017-06-12] MEDS: ALBUTEROL/IPRATROPIUM 3 ML NEB RESP TX SCH ×7 (01:47→20:45)
[2017-06-12] MEDS: CIPROFLOXACIN INJ 400 MG in PREMIX 1 EACH IV SCH ×2 (02:59→15:19)
[2017-06-12] MEDS: INSULIN REGULAR 100 UNIT/ML SUBCUT SCH ×3 (05:53→18:14)
[2017-06-12 06:09] LABS: Basophils % 0.6 % (0.0-0.8); Eosinophils # 0.3 10*3/uL (0.0-0.87); Eosinophils % 4.1 % (0.00-10.9); Hematocrit 38.4 VOL% (42.0-52.0); Hemoglobin 12.5 GM/DL (14.0-18.0); Immature Granulocytes % 0.3 %; Immature Granulocytes Absolute 0.02 #; Lymphocytes # 1.8 10*3/uL (1.4-4.0); Lymphocytes % 27.7 % (21.2-54.2); Mean Corpuscular HGB Conc 32.6 GM/DL (32-36); Mean Corpuscular Hemoglobin 32 PG (27-34); Mean Corpuscular Volume 97.5 FL (87-102); Mean Platelet Volume 8.5 FL (9.6-12.0); Monocytes # 0.8 10*3/uL (0.11-0.8); Monocytes % 12.3 % (1.7-12.7); Neutrophils # 3.6 10*3/uL (1.4-7.4); Platelet Count 429 T/CUMM (130-400); Red Blood Count 3.94 MC/CUMM (3.8-5.5); Red Cell Distribution Width 14.2 % (9.3-17.3); White Blood Count 6.5 T/CUMM (4-12)
[2017-06-12] MEDS: DEXTROSE 5% NACL 0.45% 1,000 ML IV SCH (06:17)
[2017-06-12] MEDS: metroNIDAZOLE INJ 500 MG in PREMIX 1 EACH IV SCH ×3 (06:17→22:18)
[2017-06-12] MEDS ORDERED: PROMETHAZINE 25 MG/1 ML VIAL IM PRN (07:37)
[2017-06-12] MEDS: METOPROLOL TARTRATE 50 MG TABLET PO SCH ×2 (10:26→21:15)
[2017-06-12] MEDS: PANTOPRAZOLE 40 MG TABLET PO SCH (10:27)
[2017-06-12] MEDS: LISINOPRIL 10 MG TABLET PO SCH (10:27)
[2017-06-12] MEDS: BISACODYL 5 MG TABLET PO SCH (10:27)
[2017-06-12] MEDS: FAT EMULSION 20% 250 ML IV SCH (15:16)
[2017-06-12] MEDS: TRACE ELEMENTS (5) 1 ML, MULTIVITAMIN INJ 10 ML in AMINO ACIDS/DEXT/LYTES 5-15% 2,000 ML IV SCH (16:31)
[2017-06-12] MEDS: ENOXAPARIN 40 MG/0.4 ML SYRINGE SUBCUT SCH (18:39)
[2017-06-12] MEDS: MORPHINE PCA 30 MG/30 ML SYRINGE IV SCH (20:47)
[2017-06-13] MEDS: ALBUTEROL/IPRATROPIUM 3 ML NEB RESP TX SCH ×6 (00:22→20:01)
[2017-06-13] MEDS: INSULIN REGULAR 100 UNIT/ML SUBCUT SCH ×4 (00:55→18:10)
[2017-06-13] MEDS: CIPROFLOXACIN INJ 400 MG in PREMIX 1 EACH IV SCH ×2 (01:28→13:56)
[2017-06-13] MEDS: metroNIDAZOLE INJ 500 MG in PREMIX 1 EACH IV SCH ×3 (05:30→22:50)
[2017-06-13] MEDS: PANTOPRAZOLE 40 MG TABLET PO SCH (09:04)
[2017-06-13] MEDS: BISACODYL 5 MG TABLET PO SCH (09:04)
[2017-06-13] MEDS: LISINOPRIL 10 MG TABLET PO SCH (10:45)
[2017-06-13] MEDS: METOPROLOL TARTRATE 50 MG TABLET PO SCH ×2 (10:45→22:53)
[2017-06-13] MEDS: FAT EMULSION 20% 250 ML IV SCH (13:52)
[2017-06-13] MEDS: ENOXAPARIN 40 MG/0.4 ML SYRINGE SUBCUT SCH (17:01)
[2017-06-13] MEDS: MORPHINE PCA 30 MG/30 ML SYRINGE IV SCH (17:30)
[2017-06-13] MEDS: TRACE ELEMENTS (5) 1 ML, MULTIVITAMIN INJ 10 ML in AMINO ACIDS/DEXT/LYTES 5-15% 2,000 ML IV SCH (19:31)
[2017-06-14] MEDS: INSULIN REGULAR 100 UNIT/ML SUBCUT SCH ×5 (00:11→23:32)
[2017-06-14] MEDS: ALBUTEROL/IPRATROPIUM 3 ML NEB RESP TX SCH ×6 (00:25→21:13)
[2017-06-14] MEDS: CIPROFLOXACIN INJ 400 MG in PREMIX 1 EACH IV SCH ×2 (01:10→14:44)
[2017-06-14] MEDS: metroNIDAZOLE INJ 500 MG in PREMIX 1 EACH IV SCH ×3 (05:30→23:22)
[2017-06-14 05:31] LABS: Calcium 8.4 MG/DL (8.5-10.1); Osmolality,Calculated 277.7 MOS/KG (273-304); Potassium 4.5 MMOL/L (3.5-5.1)
[2017-06-14] MEDS: LISINOPRIL 10 MG TABLET PO SCH (10:50)
[2017-06-14] MEDS: BISACODYL 5 MG TABLET PO SCH (10:50)
[2017-06-14] MEDS: METOPROLOL TARTRATE 50 MG TABLET PO SCH ×2 (10:50→22:41)
[2017-06-14] MEDS: PANTOPRAZOLE 40 MG TABLET PO SCH (10:50)
[2017-06-14] MEDS: FAT EMULSION 20% 250 ML IV SCH (14:45)
[2017-06-14] MEDS: TRACE ELEMENTS (5) 1 ML, MULTIVITAMIN INJ 10 ML in AMINO ACIDS/DEXT/LYTES 5-15% 2,000 ML IV SCH (17:53)
[2017-06-14] MEDS: ENOXAPARIN 40 MG/0.4 ML SYRINGE SUBCUT SCH (17:55)
[2017-06-14] MEDS: MORPHINE PCA 30 MG/30 ML SYRINGE IV SCH (18:14)
[2017-06-15] MEDS: ALBUTEROL/IPRATROPIUM 3 ML NEB RESP TX SCH ×6 (00:38→19:20)
[2017-06-15] MEDS: CIPROFLOXACIN INJ 400 MG in PREMIX 1 EACH IV SCH (01:11)
[2017-06-15] MEDS: MORPHINE PCA 30 MG/30 ML SYRINGE IV SCH (01:45)
[2017-06-15] MEDS: metroNIDAZOLE INJ 500 MG in PREMIX 1 EACH IV SCH ×3 (05:35→22:56)
[2017-06-15] MEDS: INSULIN REGULAR 100 UNIT/ML SUBCUT SCH ×2 (06:00→12:51)
[2017-06-15 06:17] LABS: Basophils % 0.6 % (0.0-0.8); Eosinophils # 0.3 10*3/uL (0.0-0.87); Hematocrit 37.4 VOL% (42.0-52.0); Hemoglobin 12.2 GM/DL (14.0-18.0); Immature Granulocytes % 0.3 %; Immature Granulocytes Absolute 0.02 #; Lymphocytes % 30.7 % (21.2-54.2); Mean Corpuscular HGB Conc 32.6 GM/DL (32-36); Mean Corpuscular Hemoglobin 32 PG (27-34); Mean Corpuscular Volume 96.6 FL (87-102); Mean Platelet Volume 9.1 FL (9.6-12.0); Monocytes # 0.8 10*3/uL (0.11-0.8); Monocytes % 13.2 % (1.7-12.7); Neutrophils # 3.2 10*3/uL (1.4-7.4); Neutrophils % 50.2 % (38.7-73.9); Platelet Count 361 T/CUMM (130-400); Red Blood Count 3.87 MC/CUMM (3.8-5.5); Red Cell Distribution Width 13.7 % (9.3-17.3); White Blood Count 6.4 T/CUMM (4-12)
[2017-06-15 06:45] LABS: Calcium 8.2 MG/DL (8.5-10.1); Osmolality,Calculated 274.8 MOS/KG (273-304); Potassium 4.5 MMOL/L (3.5-5.1)
[2017-06-15] MEDS: PANTOPRAZOLE 40 MG TABLET PO SCH (08:56)
[2017-06-15] MEDS: BISACODYL 5 MG TABLET PO SCH (08:56)
[2017-06-15] MEDS: METOPROLOL TARTRATE 50 MG TABLET PO SCH ×2 (08:57→21:40)
[2017-06-15] MEDS: LISINOPRIL 10 MG TABLET PO SCH (08:57)
[2017-06-15] MEDS: PIPERACILLIN/TAZOBACTAM 3,375 MG in SODIUM CHLORIDE 0.9% 100 ML IV SCH ×2 (12:51→18:47)
[2017-06-15] MEDS: FAT EMULSION 20% 250 ML IV SCH (15:42)
[2017-06-15] MEDS: TRACE ELEMENTS (5) 1 ML, MULTIVITAMIN INJ 10 ML in AMINO ACIDS/DEXT/LYTES 5-15% 2,000 ML IV SCH (18:22)
[2017-06-15] MEDS: ENOXAPARIN 40 MG/0.4 ML SYRINGE SUBCUT SCH (18:22)
[2017-06-16] MEDS: ALBUTEROL/IPRATROPIUM 3 ML NEB RESP TX SCH ×7 (00:03→23:16)
[2017-06-16] MEDS: INSULIN REGULAR 100 UNIT/ML SUBCUT SCH ×5 (01:41→17:20)
[2017-06-16] MEDS: MORPHINE PCA 30 MG/30 ML SYRINGE IV SCH (03:41)
[2017-06-16] MEDS: PIPERACILLIN/TAZOBACTAM 3,375 MG in SODIUM CHLORIDE 0.9% 100 ML IV SCH (05:07)
[2017-06-16] MEDS ORDERED: MORPHINE 2 MG/1 ML SYRINGE IV PRN (07:49)
[2017-06-16] MEDS: CIPROFLOXACIN 500 MG TABLET PO SCH ×2 (09:35→21:11)
[2017-06-16] MEDS: BISACODYL 5 MG TABLET PO SCH (09:36)
[2017-06-16] MEDS: PANTOPRAZOLE 40 MG TABLET PO SCH (09:37)
[2017-06-16] MEDS: metroNIDAZOLE 500 MG TABLET PO SCH ×3 (09:37→21:11)
[2017-06-16] MEDS: LISINOPRIL 10 MG TABLET PO SCH (09:39)
[2017-06-16] MEDS: METOPROLOL TARTRATE 50 MG TABLET PO SCH ×2 (09:39→21:02)
[2017-06-16] MEDS: ENOXAPARIN 40 MG/0.4 ML SYRINGE SUBCUT SCH (17:20)
[2017-06-17] MEDS: ALBUTEROL/IPRATROPIUM 3 ML NEB RESP TX SCH ×6 (02:49→23:46)
[2017-06-17] MEDS: INSULIN REGULAR 100 UNIT/ML SUBCUT SCH ×4 (08:14→18:18)
[2017-06-17] MEDS: metroNIDAZOLE 500 MG TABLET PO SCH ×3 (09:51→22:01)
[2017-06-17] MEDS: BISACODYL 5 MG TABLET PO SCH (09:51)
[2017-06-17] MEDS: PANTOPRAZOLE 40 MG TABLET PO SCH (09:52)
[2017-06-17] MEDS: CIPROFLOXACIN 500 MG TABLET PO SCH ×2 (09:52→22:01)
[2017-06-17] MEDS: LISINOPRIL 10 MG TABLET PO SCH (10:26)
[2017-06-17] MEDS: METOPROLOL TARTRATE 50 MG TABLET PO SCH ×2 (10:26→22:01)
[2017-06-17] MEDS: ENOXAPARIN 40 MG/0.4 ML SYRINGE SUBCUT SCH (18:49)
[2017-06-18] MEDS: ALBUTEROL/IPRATROPIUM 3 ML NEB RESP TX SCH ×4 (02:02→14:24)
[2017-06-18 05:53] LABS: Basophils % 0.6 % (0.0-0.8); Eosinophils # 0.3 10*3/uL (0.0-0.87); Eosinophils % 4.4 % (0.00-10.9); Hematocrit 35.5 VOL% (42.0-52.0); Hemoglobin 12.3 GM/DL (14.0-18.0); Immature Granulocytes % 0.5 %; Immature Granulocytes Absolute 0.03 #; Lymphocytes # 2.3 10*3/uL (1.4-4.0); Lymphocytes % 34.4 % (21.2-54.2); Mean Corpuscular HGB Conc 34.6 GM/DL (32-36); Mean Corpuscular Hemoglobin 33 PG (27-34); Mean Corpuscular Volume 94.2 FL (87-102); Mean Platelet Volume 9.3 FL (9.6-12.0); Monocytes # 0.8 10*3/uL (0.11-0.8); Monocytes % 12.5 % (1.7-12.7); Neutrophils # 3.2 10*3/uL (1.4-7.4); Neutrophils % 47.6 % (38.7-73.9); Platelet Count 297 T/CUMM (130-400); Red Blood Count 3.77 MC/CUMM (3.8-5.5); White Blood Count 6.7 T/CUMM (4-12)
[2017-06-18 06:20] LABS: Calcium 8.5 MG/DL (8.5-10.1); Osmolality,Calculated 278.4 MOS/KG (273-304); Potassium 4.2 MMOL/L (3.5-5.1)
[2017-06-18] MEDS: INSULIN REGULAR 100 UNIT/ML SUBCUT SCH ×2 (09:05)
[2017-06-18] MEDS: CIPROFLOXACIN 500 MG TABLET PO SCH (09:24)
[2017-06-18] MEDS: metroNIDAZOLE 500 MG TABLET PO SCH (09:24)
[2017-06-18] MEDS: BISACODYL 5 MG TABLET PO SCH (09:24)
[2017-06-18] MEDS: LISINOPRIL 10 MG TABLET PO SCH (09:25)
[2017-06-18] MEDS: PANTOPRAZOLE 40 MG TABLET PO SCH (09:25)
[2017-06-18] MEDS: METOPROLOL TARTRATE 50 MG TABLET PO SCH (09:25)
[2017-06-18 11:33] VITALS: BP 160/87
== END 2017-06-18 14:20 | disposition home or self-care (01) | DRG 372 ==
LOC: N.ED 11:49 → N.EDINP 13:49 → N.3E 15:03
PROVIDERS: ADMIT Surgery; ATTEND Surgery